=== PATIENT | male | born 1980 | race African-American/Black ===

== ENCOUNTER 2024-08-20 09:15 | Emergency (ER) | payer MEDICAID, OTHER ==
[~2024-08-20] VITALS: Ht 175.3 cm; Wt 104.3 kg
[2024-08-20 09:26] VITALS: O2SAT 97
[2024-08-20 09:33] VITALS: TEMP 98.3; O2SAT 97
[2024-08-20 11:31] LABS: BASOPHILS % 0.5 % (0.0-2.0); EOSINOPHILS % 0.8 % (0.0-5.0); HEMATOCRIT. 38.9 % (42.0-52.0); HEMOGLOBIN. 12.8 g/dL (14.0-18.0); LYMPHOCYTES % 19.6 % (20.0-50.0); MEAN CORPUSCULAR HEMOGLOBIN 27.7 pg (28.0-32.0); MEAN CORPUSCULAR VOLUME 83.8 fL (80.0-94.0); MEAN PLATELET VOLUME 7.3 fl (7.4-10.4); MONOCYTES % 10.9 % (2.0-8.0); NEUTROPHILS % 68.2 % (40.0-76.0); PLATELET 376 x1000/uL (130-400); RED BLOOD CELL COUNT 4.64 mill/uL (4.7-6.1)
[2024-08-20 11:39] LABS: CHLORIDE 95 mEq/L (98-107); POTASSIUM 3.7 mEq/L (3.5-5.1); SODIUM 135 mEq/L (136-145)
[2024-08-20 11:40] LABS: CALCIUM 9.8 mg/dL (8.7-10.4); CARBON DIOXIDE 33 mEq/L (21-32)
[2024-08-20 11:45] LABS: CREATININE 1.1 mg/dL (0.6-1.3); GLUCOSE 107 mg/dL (70-105); UREA NITROGEN BLOOD 18 mg/dL (9-23)
[2024-08-20 11:47] LABS: ALANINE AMINOTRANSFERASE 31 IU/L (10-49); ALBUMIN 4.4 g/dL (3.2-4.8); ASPARTATE AMINOTRANSFERASE 27 IU/L (<34); BILIRUBIN TOTAL 0.6 mg/dL (0.1-1.0); PROTEIN TOTAL 8.7 g/dL (6.0-8.3)
[2024-08-20 12:07] VITALS: BP 136/94; PULSE 90; RESP 16
[2024-08-20] MEDS: BUPIVACAINE HCL/PF 0.5% (5MG/ML) 10ML INFIL ONE (12:07)
[2024-08-20] MEDS: KETOROLAC 30MG/ML VIAL IM ONE (12:07)
[2024-08-20 12:20] LABS: ERYTHROCYTE SEDIMENTATION RATE 85 mm/hr (0-15)
[2024-08-20 16:21] LABS: CLARITY URINE CLEAR (CLEAR); COLOR URINE YELLOW (YELLOW); GLUCOSE URINE NEGATIVE (NEGATIVE); KETONES URINE NEGATIVE (NEGATIVE); LEUKOCYTE ESTERASE URINE NEGATIVE (NEGATIVE); NITRITE URINE NEGATIVE (NEGATIVE); OCCULT BLOOD URINE NEGATIVE (NEGATIVE); PH URINE 6.5 (4.5-8.0); PROTEIN URINE NEGATIVE (NEGATIVE); SPECIFIC GRAVITY URINE 1.016 (1.005-1.030); UROBILINOGEN URINE 0.2 E.U./dL (0.2-1.0)
[2024-08-20 16:35] LABS: BODY FLUID MONOCYTES 10 %
[2024-08-20 16:36] LABS: BODY FLUID RBC 130000 /cu mm (0-2000); BODY FLUID WBC 22438 /cu mm (0-200)
[2024-08-20] MEDS ORDERED: P50 MT (16:47)
[2024-08-20] MEDS ORDERED: INDO50CA98 MT (16:47)
[2024-08-22 19:06] LABS: CHLAMYDIA TRACHOMATIS NAA Negative (Negative); NEISSERIA GONORRHOEAE NAA Negative (Negative)
== END 2024-08-20 17:27 | disposition home or self-care (01) ==
LOC: ER 09:30
DX: M10.9 Gout, unspecified (principal); I10 Essential (primary) hypertension
CPT/HCPCS: 87491; 87591; 80053; 81003; 85025; 85651; 87070; 87205; 89050; 89060; 36415; 73560; 20600; 96372; 99284; J3490; J1885; Z7610 ×2; J0665